=== PATIENT | male | born 1960 | race Caucasian/White ===

== ENCOUNTER 2016-12-13 05:13 | Observation (INO) | payer OTHER ==
[~2016-12-13] VITALS: Ht 188 cm; Wt 124.8 kg
[2016-12-13] VITALS (9 sets, daily range): BP systolic 102–139; BP diastolic 57–90
--- NOTE | 2016-12-13 07:02 | DIAGNOSTIC IMAGING REPORT ---
PROCEDURE: CT ABD/PELVIS WITH CONTRAST CLINICAL INDICATION: ABDOMINAL PAIN TECHNIQUE: 135 ml of Isovue 300 were injected intravenously and axial images were obtained of the entire abdomen and pelvis with sagittal and coronal reformations. COMPARISON: None. FINDINGS: ABDOMEN: Lung bases are clear. Heart size is normal. Distended gallbladder (15 cm). No evidence of cholelithiasis or inflammatory changes. Normal CBD measures 6 mm. Liver, pancreas, spleen, adrenal glands and kidneys are unremarkable. Stomach is unremarkable. Mild atherosclerosis. Nonspecific bowel gas pattern. PELVIS: Normal appendix. Mildly enlarged prostate, 4.7 cm. There is no pelvic mass, inflammatory changes or free fluid. No suspicious osseous lesions. IMPRESSION: 1. Markedly distended gallbladder. Recommend ultrasound 2. Mildly enlarged prostate 3. Results discussed Dr. Michael All CT scans at this facility use dose modulation, iterative reconstruction, and/or weight-based dosing when appropriate to reduce radiation dose to as low as reasonably achievable.
--- NOTE | 2016-12-13 08:50 | ED CLINICAL REPORT ---
Clinical Report - Phys[facility] Levels [facility] [address] [place] [address] 12/13/2016 5:15 Patient: ERASMO BENNETT Time Seen: 05:37 Dec 13 2016. Arrived- By private vehicle. Historian- patient. CPT: ER phys charges level 5 (#[id number]). HISTORY OF PRESENT ILLNESS Chief Complaint: ABDOMINAL PAIN. At its maximum, severity described as moderate. When seen in the E.D., severity described as moderate. Modifying factors- worsened by movement. Not relieved by anything. It is described as "pain" and it is described as located in the right upper quadrant and radiating to the upper back. This started today ( Patient states he woke from sleep with severe pain in his abdomen. He reports the pain radiates to his back.). and is still present. The patient has had nausea and loss of appetite. No vomiting or diarrhea. No recent travel. Similar symptoms previously: None. Recent medical care: Not recently seen/assessed. REVIEW OF SYSTEMS No constipation, black stools, hematemesis, difficulty with urination or pain with urination. No urinary frequency, fever, sore throat or throat or chest pain. No difficulty breathing, cough, joint pain, skin rash or chills. No back pain, weakness, diabetic symptoms or easy bruising. All systems otherwise negative, except as recorded above. PAST HISTORY Pituitary mass. Hypertension. --05:21 Delmi Lopez. ADDITIONAL SURGERIES: Abdominal surgery- after accident . Medications: Hydrochlorothiazide Oral. Omeprazole Oral. Bromocriptine Mesylate Oral. Allergies: Wellbutrin. SOCIAL HISTORY Never smoker. Occasional alcohol use. No drug use. ADDITIONAL NOTES The nursing notes have been reviewed. PHYSICAL EXAM Vital Signs: 12/13/2016 05:18 BP: 178/98. HR: 70. RR: 20. O2 saturation: 99%. Temp: 97.8 F. Pain level now: 10/10. Appearance: Alert. Anxious. Patient in moderate distress. Eyes: Eyes normal inspection. ENT: Pharynx normal. Neck: Normal inspection. CVS: Normal heart rate and rhythm. Heart sounds normal. Pulses normal. Respiratory: No respiratory distress. Breath sounds normal. Chest nontender. Abdomen: Soft. Moderate tenderness in the epigastric area. Abnormal bowel sounds: diminished. No mass. Back: Normal inspection. No CVA tenderness. Skin: Skin warm. Normal skin color. No rash. Extremities: Extremities exhibit normal ROM. No calf tenderness. No lower extremity edema. Neuro: Oriented X 3. No motor deficit. No sensory deficit. Reflexes normal. LABS, X-RAYS, AND EKG Abdominal CT: large GB at 15 cm long. No apparent inflammatory signs or obvious stones seen. Recommends US study. Abdominal CT performed with IV contrast. The study was independently viewed by me, interpreted by the radiologist and discussed with the radiologist. Abdominal Sonogram: Multiple gallstones are present. Gallbladder wall thickening is present. (Gallbladder). No pericholecystic fluid, dilated common duct or common duct stones. The study was independently viewed by me and interpreted contemporaneously by me. Laboratory Tests: UA-Culture if indicated: (BERRTAM: 12/13/2016 05:34) ( [facility] 12/13/2016 05:55) Final results Test Result Flag Units (Reference) URINE COLOR YELLOW URINE APPEARANCE CLEAR URINE GLUCOSE NEGATIVE (NEGATIVE) URINE BILIRUBIN NEGATIVE (NEGATIVE) URINE KETONE NEGATIVE (NEGATIVE) URINE SPECIFIC GRAVITY 1.025 (1.010-1.030) URINE PH 6.0 (5.0-8.0) URINE PROTEIN NEGATIVE (NEGATIVE) URINE UROBILINOGEN 0.2 EU/dL (0.2-1.0) URINE NITRITE NEGATIVE (NEGATIVE) URINE BLOOD NEGATIVE (NEGATIVE) URINE LEUK ESTERASE NEGATIVE (NEGATIVE) URINE RBC RARE rbc/hpf (0-1) URINE WBC 0-1 wbc/hpf (0-1) URINE EPITHELIAL CELLS 0-1 EPI/hpf (0-5) URINE BACTERIA TRACE (<1+) (NONE SEEN) URINE COMMENT CULT NOT INDICATED URINE CULTURES ARE SET-UP BASED ON THE FOLLOWING CRITERIA:POSITIVE NITRITEPOSITIVE LEUKOCYTE ESTERASEGREATER THAN 10 WHITE BLOOD CELLSMODERATE (2+) OR GREATER BACTERIA CBC w Diff: (BERTRAM: 12/13/2016 05:20) ( [facility] 12/13/2016 05:39) Final results Test Result Flag Units (Reference) WHITE BLOOD COUNT 7.2 K/uL (4.5-11.5) RED BLOOD COUNT 5.39 M/uL (4.50-5.90) HEMOGLOBIN 16.0 gm/dL (13.5-17.5) HEMATOCRIT 46.2 % (41.0-53.0) MEAN CELL VOLUME 86 fL (80-100) MEAN CORPUSCULAR HGB 30 pg (26-34) MEAN CORPUSCULAR HGB CONC 35 g/dL (31-37) RED CELL DISTRIBUTION WIDTH 13.4 % (11.6-14.8) PLATELET COUNT 226 K/uL (150-400) NEUTROPHIL % 63.9 % (50-75) LYMPH % 26.4 % (25-40) MONO % 7.7 % (3-14) EOSINOPHIL % 1.8 % (0-4) BASOPHIL % 0.2 % (0-2) CMP: (BERTRAM: 12/13/2016 05:20) ( MsgRcvd 12/13/2016 05:43) Final results Test Result Flag Units (Reference) GLUCOSE 121 H mg/dL (70-110) BUN 21 H mg/dL (7-18) CREATININE 1.3 mg/dL (0.6-1.3) Estimated GFR >60 mL/min Estimated GFR- >60 mL/min Note: Persistent reduction over 3 months in eGFR<60 mL/min/1.73 m2 defines CKD. Patients with eGFR values>=60 mL/min/1.73 m2 may also have CKD if evidence ofpersistent proteinuria. Additional information may be foundat www.kidney.org. SODIUM 144 mmol/L (136-145) POTASSIUM 4.0 mmol/L (3.5-5.1) CHLORIDE 105 mmol/L (98-107) CARBON DIOXIDE 28 mmol/L (21-32) CALCIUM 8.9 mg/dL (8.5-10.1) TOTAL PROTEIN 7.7 g/dL (6.4-8.2) ALBUMIN 3.8 g/dL (3.3-5.0) BILIRUBIN, TOTAL 0.5 mg/dL (0.0-1.0) ALKALINE PHOSPHATASE 72 U/L (46-116) AST (SGOT) 23 U/L (15-37) ALT (SGPT) 59 U/L (12-78) LIPASE 279 U/L (73-393) AMYLASE 56 U/L (25-115) . PROGRESS AND PROCEDURES Course of Care: IV NS Demerol 25 mg IV Zofran 4 mg IV White GI cocktail: NO change Dilaudid 1 mg IV times 2 Zofran 4 mg IV Patient is stable. Symptoms better. Discussed case with on-call health care provider, ([facility]). Reviewed test results. Agreed upon treatment plan and decision to admit. Health care provider will see patient. Patient/family counseled. Old medical records ordered. Disposition orders written. Disposition: Admitted to Acute Care. CLINICAL IMPRESSION Acute cholecystitis with cholelithiasis. No obstruction or choledocholithiasis. (Electronically signed by Alex Michael MD 12/13/2016 23:11)
--- NOTE | 2016-12-13 08:50 | ED NURSING NOTES ---
Clinical Report - [facility] [address] [place] [address] 12/13/2016 5:15 Patient: ERASMO BENNETT TRIAGE Triage time 05:Dec 13 2016. Acuity: LEVEL 3. Chief Complaint: ABDOMINAL PAIN. SEPSIS SCREEN: Sepsis Screen: negative. Negative (no infection suspected/documented). NINA COMA SCORE: Nina Coma Scale: 15- eyes open spontaneously (4); best verbal response- oriented x 4 (5); best motor response- obeys commands (6). --05:22 Delmi Lopez 05:18 12/13/16. BP: 178/98. HR: 70. RR: 20. O2 saturation: 99%. Temp: 97.8 F (oral). Pain level now: 05/19. --05:22 Delmi Lopez. Weight: 124.7 kg stated. Height/Length: 74 inches Per Patient. BMI: 35.3. --05:19 Delmi Lopez. Medications Bromocriptine Mesylate Oral. --05:20 Delmi Lopez Omeprazole Oral. --05:20 Delmi Lopez Hydrochlorothiazide Oral. --05:20 Delmi Lopez. Allergies Wellbutrin. --05:20 Delmi Lopez. Medication/allergy information source: the patient. --05:22 Delmi Lopez. History Arrived by private vehicle. Historian: patient. Accompanied by family. Primary physician ([facility]). This started just prior to arrival. ( Patient states he woke from sleep with severe pain in his abdomen. He reports the pain radiates to his back.). PAST MEDICAL HX: Immunizations: up-to-date. SOCIAL HX: Never smoker. Occasional alcohol use. No recent travel. No infectious disease exposure. No known contact with a sick individual. ABUSE ASSESSMENT: No report of abuse. FALL RISK ASSESSMENT: Fall risk assessment completed. No fall risk identified. NUTRITIONAL RISK ASSESSMENT: The nutritional risk assessment revealed no deficiencies. FUNCTIONAL ASSESSMENT: Functional assessment: no impairments noted. LEARNING NEEDS ASSESSMENT: The learning needs assessment revealed no barriers. SKIN INTEGRITY ASSESSMENT: Skin integrity risk assessment completed. No skin integrity risk identified. --: Delmi Lopez. PROBLEMS: Pituitary mass. Hypertension. --05: Delmi Lopez. ADDITIONAL SURGERIES: Abdominal surgery- after accident . --05: Delmi Lopez. Interventions ID band on patient. To treatment room. --: Delmi Lopez. PHYSICAL ASSESSMENT 05:12/13/16. Ambulatory to room. Patient gowned. GENERAL / NEURO / PSYCH: Alert. Oriented X 4. Appears in pain. HEENT: Mucous membranes are pink. RESPIRATORY: Respirations not labored. CVS: Normal sinus rhythm noted. GI / : Abdomen soft. Abdominal tenderness in the epigastric area. SKIN: Skin is warm and dry. --: Delmi Lopez. NURSING PROGRESS NOTES 05:12/13/16. Pulse oximeter and NIBP monitor placed on patient; monitor alarms on. Patient gowned. Reassurance given to the patient. Two patient identifiers checked. Call light placed in reach. Side rails up x 1. Bed placed in lowest position. Brakes of bed on. Patient ready for evaluation- chart flagged and ED physician notified. --: Delmi Lopez 05:12/13/2016 Site #1 started via IV in the left antecubital space with an 20g angiocath, with aseptic technique and good blood return; one attempt. Blood drawn: rainbow set. Labeled in the presence of the patient and sent to the lab. Saline lock flushed with 10 mL saline. --05:29 Delmi Lopez Patient ID band checked for patient name and birthdate: patient confirmed. Blood samples drawn from the left antecubital space peripheral IV site with Vacutainer by nurse ; labeled in presence of the patient and sent to lab: rainbow set. Line flushed with 10 mL normal saline post blood draw. --05:30 Delmi Lopez Patient ID band checked for patient name and birthdate: patient confirmed. Instructions provided to collect clean catch urine and patient verbalized understanding. Clean catch urine collected with return of yellow-colored clear urine; sample sent to lab for urinalysis. Specimen labeled in the presence of the patient. --05:33 Delmi Lopez 05:33 12/13/16. BP: 153/94 taken on the right arm. --05:33 Delmi Lopez 05:33 12/13/16. BP: 152/94 taken on the left arm. --05:34 Delmi Lopez 05:49 12/13/2016 Demerol (Meperidine HCl) IVP 25 mg given over 1 minute(s) via site #1. Allergies verified and confirmed 5 rights. IV patency established. IV site checked: no pain, redness, or swelling. IV flushed thoroughly pre- and post-medication administration. IVP given by RN. --05:49 Delmi Lopez 05:49 12/13/2016 Zofran (Ondansetron HCl) IVP 4 mg given over 1 minute(s) via site #1. Allergies verified and confirmed 5 rights. IV patency established. IV site checked: no pain, redness, or swelling. IV flushed thoroughly pre- and post-medication administration. IVP given by RN. --05:49 Delmi Lopez 05:50 12/13/2016 GI COCKTAIL WHITE (Simethicone) PO Oral Suspension 50 mL given. Allergies verified and confirmed 5 rights. --05:50 Delmi Lopez 06:05 12/13/2016 Dilaudid (HYDROmorphone HCl PF) IVP 1 mg given over 1 minute(s) via site #1. Allergies verified, confirmed 5 rights and sedative warning given to the patient. IV patency established. IV site checked: no pain, redness, or swelling. IV flushed thoroughly pre- and post-medication administration. IVP given by RN. --06:05 Delmi Lopez 06:05 12/13/16. BP: 148/90. HR: 70. RR: 20. O2 saturation: 97% on room air. Pain level now: 05/19. --06:06 Delmi Lopez 06:15 12/13/16. Pain level now: 7/10. --06:16 Delmi Lopez 06:40 12/13/16. BP: 128/75. HR: 78. RR: 20. O2 saturation: 96% on room air. Pain level now: 6/10. --06:43 Delmi Lopez The patient is resting quietly. --06:43 Delmi Lopze Care transferred and report given (India RN). --07:09 Delmi Lopez 07:53 12/13/2016 Dilaudid (HYDROmorphone HCl PF) IVP 1 mg given over 2 minute(s) via site #1. Allergies verified, confirmed 5 rights and sedative warning given to the patient. IV patency established. IV site checked: no pain, redness, or swelling. IV flushed thoroughly pre- and post-medication administration. IVP given by RN. --07:58 India Chang R.N. 07:53 12/13/2016 Zofran (Ondansetron HCl) IVP 4 mg given over 1 minute(s) via site #1. Allergies verified and confirmed 5 rights. IV patency established. IV site checked: no pain, redness, or swelling. IV flushed thoroughly pre- and post-medication administration. IVP given by RN. --07:58 India Chang R.N. 07:59 12/13/16. military technology specialist at the patient's bedside. --07:59 India Chang R.N. 07:59 12/13/16. BP: 127/72. HR: 66. RR: 16. O2 saturation: 98% on nasal cannula at 2 liters/minute. --07:59 India Chang R.N. <<STRICKEN ENTRY-- Reassessment after medication administered. He has had no adverse reaction. Overall patient status- he states feels better. ( US at the bedside for exam.). --08:44 Vannessa Casillas R.N. --END STRIKE>> Charted On Wrong Patient --08:44 Vannessa Casillas R.N. 09:13 12/13/16. BP: 127/72. HR: 76. RR: 12. O2 saturation: 95% on nasal cannula at 2 liters/minute. --09:14 India Chang R.N. 10:05 12/13/16. BP: 105/51. HR: 86. RR: 16. O2 saturation: 95% on nasal cannula at 2 liters/minute. --10:05 India Chang R.N. DISPOSITION / DISCHARGE 10:25 12/13/2016 Site #[address] upon admission; patent, no pain and no signs of infection or infiltration. Flushed with 10 mL saline; flushes easily. --10:25 India Chang R.N. Admitted to Acute Care. Transported via stretcher by tech. Report was given to a nurse via a phone call. Report included patient's care, treatment, medications, reviewed medication reconcilliation, and condition (including any recent changes or anticipated changes). All questions were answered. Report was acknowledged and care was transferred. (RAKESH Feliz). Bed obtained (301). Patient's personal items include: glasses and cell phone, pt states his took all the rest of his belongings home; items were transported with the patient. He did not have dentures or a hearing aid. --10:25 India Chang R.N. 13:48 12/13/16. BP: 105/51. HR: 86. RR: 16. O2 saturation: 95% on room air. Temp: 98 F (oral). --13:49 India Chang R.N. Locked/Released at 12/13/2016 13:50 by India Chang R.N.
--- NOTE | 2016-12-13 08:50 | ED ORDER SUMMARY ---
..... Patient: ERASMO BENNETT OrderSheet [facility] VisitID: [id number] [address] [place] [address] 56y, M Registration Date/Time: 12/13/2016 ORDER SHEET Weight: 124.7 kg (stated) Allergies: Wellbutrin GENERAL ORDERS: CBC w Diff Urgent (05:23 12/13/2016 HSoule per protocol) (Ack 5:27 AMcQuoid ER Tech1) (5:27 AMcQuoid ER Tech1) CMP Urgent (05:23 12/13/2016 HSoule per protocol) (Ack 5:27 AMcQuoid ER Tech1) (5:27 AMcQuoid ER Tech1) Amylase Urgent (05:12/13/2016 HSoule per protocol) (Ack 5:27 AMcQuoid ER Tech1) (5:27 AMcQuoid ER Tech1) Lipase Urgent (05:12/13/2016 HSoule per protocol) (Ack 5:27 AMcQuoid ER Tech1) (5:27 AMcQuoid ER Tech1) UA-Culture if indicated Urgent (05:23 12/13/2016 HSoule per protocol) (Ack 5:27 AMcQuoid ER Tech1) (5:43 AMcQuoid ER Tech1) CT Abd/Pel w Cont (No) (WNL) Urgent (06:02 12/13/2016 CBrandy R.N. verbal order read back to Rahul SPAULDING) (Ack 6:04 AMcQuoid ER Tech1) (6:40 Marita) Verbal order read back and verified US Abdomen Limited (No) (GALLBLADDER EXAM) Urgent (07:03 12/13/2016 AMcQuoid ER Tech1 verbal order read back to Rahul SPAULDING) (Ack 7:05 AMcQuoid ER Tech1) (9:13 MWinterer R.N.) MEDICATION ORDERS: GI Cocktail WHITE PO 50 mL (NOW) (05:41 12/13/2016 Rahul SPAULDING) (Ack 5:41 HSoule) (5:50 HSoule) IV FLUIDS: IV Saline Lock (05:29 12/13/2016 HSoule per protocol) (5:29 HSoule) Demerol IV 25 mg (NOW) (05:41 12/13/2016 Rahul SPAULDING) (Ack 5:41 HSoule) (5:49 HSoule) Zofran IV 4 mg (NOW) (05:41 12/13/2016 Rahul SPAULDING) (Ack 5:41 HSoule) (5:49 HSoule) Dilaudid IV 1 mg (NOW) (06:02 12/13/2016 Jennifer GoinsNShayne verbal order read back to Rahul SPAULDING) (6:05 HSoule) Verbal order read back and verified Dilaudid IV 1 mg (NOW) (07:44 12/13/2016 Rahul SPAULDING) (Ack 7:47 MWinterer R.N.) (7:58 MWinterer R.N.) Zofran IV 4 mg (NOW) (07:44 12/13/2016 Rahul SPAULDING) (Ack 7:47 MWinterer R.N.) (7:58 MWinterer R.N.) ORDER SHEET NOTES: [Electronically signed by India Chang R.N. (13:50 12/13/2016)] [Electronically signed by Alex Michael MD (23:11 12/13/2016)] [Electronically locked/signed by India Chang R.N. (13:50 12/13/2016)]
--- NOTE | 2016-12-13 08:50 | ED ORDER SUMMARY ---
..... Patient: ERASMO BENNETT OrderSheet [facility] VisitID: [id number] [address] [place] [address] 56y, M Registration Date/Time: 12/13/2016 ORDER SHEET Weight: 124.7 kg (stated) Allergies: Wellbutrin GENERAL ORDERS: CBC w Diff Urgent (05:23 12/13/2016 HSoule per protocol) (Ack 5:27 AMcQuoid ER Tech1) (5:27 AMcQuoid ER Tech1) CMP Urgent (05:23 12/13/2016 HSoule per protocol) (Ack 5:27 AMcQuoid ER Tech1) (5:27 AMcQuoid ER Tech1) Amylase Urgent (05:12/13/2016 HSoule per protocol) (Ack 5:27 AMcQuoid ER Tech1) (5:27 AMcQuoid ER Tech1) Lipase Urgent (05:12/13/2016 HSoule per protocol) (Ack 5:27 AMcQuoid ER Tech1) (5:27 AMcQuoid ER Tech1) UA-Culture if indicated Urgent (05:23 12/13/2016 HSoule per protocol) (Ack 5:27 AMcQuoid ER Tech1) (5:43 AMcQuoid ER Tech1) CT Abd/Pel w Cont (No) (WNL) Urgent (06:02 12/13/2016 CBrandy R.N. verbal order read back to Rahul SPAULDING) (Ack 6:04 AMcQuoid ER Tech1) (6:40 Marita) Verbal order read back and verified US Abdomen Limited (No) (GALLBLADDER EXAM) Urgent (07:03 12/13/2016 AMcQuoid ER Tech1 verbal order read back to Rahul SPAULDING) (Ack 7:05 AMcQuoid ER Tech1) (9:13 MWinterer R.N.) MEDICATION ORDERS: GI Cocktail WHITE PO 50 mL (NOW) (05:41 12/13/2016 Rahul SPAULDING) (Ack 5:41 HSoule) (5:50 HSoule) IV FLUIDS: IV Saline Lock (05:29 12/13/2016 HSoule per protocol) (5:29 HSoule) Demerol IV 25 mg (NOW) (05:41 12/13/2016 Rahul SPAULDING) (Ack 5:41 HSoule) (5:49 HSoule) Zofran IV 4 mg (NOW) (05:41 12/13/2016 Rahul SPAULDING) (Ack 5:41 HSoule) (5:49 HSoule) Dilaudid IV 1 mg (NOW) (06:02 12/13/2016 Jennifer GoinsNShayne verbal order read back to Rahul SPAULDING) (6:05 HSoule) Verbal order read back and verified Dilaudid IV 1 mg (NOW) (07:44 12/13/2016 Rahul SPAULDING) (Ack 7:47 MWinterer R.N.) (7:58 MWinterer R.N.) Zofran IV 4 mg (NOW) (07:44 12/13/2016 Rahul SPAULDING) (Ack 7:47 MWinterer R.N.) (7:58 MWinterer R.N.) ORDER SHEET NOTES: [Electronically signed by India Chang R.N. (13:50 12/13/2016)] [Electronically signed by Alex Michael MD (23:11 12/13/2016)] [Electronically locked/signed by India Chang R.N. (13:50 12/13/2016)]
--- NOTE | 2016-12-13 09:59 | DIAGNOSTIC IMAGING REPORT ---
PROCEDURE: US ABDOMEN ULTRASOUND-LIMITED INDICATION: PAIN TECHNIQUE: Ordaz scale and color Doppler sonographic images of the abdomen were obtained. COMPARISON: None. FINDINGS: Enlarged gallbladder (15 cm) with two gallstones (1.0 and 1.3 cm ) mobile gallstones. There is mild gallbladder wall thickening (3.2 mm). CBD measures 6 mm. Liver is normal. Visualized pancreas is unremarkable. IVC is patent. Normal hepatopetal flow. Normal right kidney measures 12.1 cm. IMPRESSION: 1. Gallbladder hydrops with cholelithiasis and mild gallbladder wall thickening. Findings suggestive of acute cholecystitis 2. Results discussed Dr. Michael
[2016-12-13] MEDS ORDERED: BROMOCRIPTINE ME5 MG ×3 (11:12→12:59)
[2016-12-13] MEDS ORDERED: OMEPRAZOLE20 M1 (11:12)
[2016-12-13] MEDS ORDERED: HYDROCHLOROTHIA25 MG PO (11:13)
--- NOTE | 2016-12-13 13:35 | Consultation Report ---
History Chief Complaint Right upper quadrant abdominal pain History of Present Illness 56-year-old male admitted via the emergency room. The patient presented with epigastric right upper quadrant abdominal pain. Patient states that after he ate some homemade tacos the evening prior to felt a little queasy. He went to bed and at 4 AM awoke with epigastric abdominal discomfort that radiated into his back. Denied any nausea or vomiting. Denied any diarrhea. Denied any fever or chills. Denied any prior history of abdominal pain like this. Denied any history of peptic ulcer disease. PAST MEDICAL/SURGICAL HISTORY: History of chest wall injury requiring suturing. History of biceps tendon repair. Repair of smashed fourth digit left hand. History of hypertension. History of benign pituitary tumor. MEDICATION: Bromocriptine 50 mg at bedtime Hydrochlorothiazide 25 mg daily. Omeprazole 20 mg daily Patient History 1. Acute cholecystitis Social History The patient is . He has 2 sons and 1 daughter they're alive and well. The patient lives on [facility]. Patient does not smoke. Patient drinks alcohol rarely socially. Patient does not drink coffee. Patient has no service. Patient is employed by the [employer] and elevated with a [employer] FAMILY HISTORY: Mother age 70 history of breast cancer. Father age 72 history of hypertension and gout. Patient has no brothers. Patient has 2 sisters alive and well. Medications and Allergies Medications See my above dictation Current Medications Sig/Pat Start time Last Medication Dose Route Stop Time Status Admin Acetaminophen 1,000 MG PREOP 12/14 0800 UNV IV Cefotetan Disodium/ 50 ML Q12HR / 1200 AC 05/06 Dextrose IV 1200 Famotidine/Sodium 50 ML Q12HR / 1200 AC 05/06 Chloride IV 1126 Metoclopramide HCl 10 MG Q6HR / 1200 AC 05/06 IV 1126 Cefotetan Disodium/ 50 ML .CASING RUNNER TO OR 12/13 1030 AC Dextrose IV Lactated Ringer's 1,000 ML ASDIRECTED 12/13 1030 AC 05/06 IV 1127 Meperidine HCl 12.5 MG Q1H PRN / 1030 AC IV Meperidine HCl 25 MG Q1H PRN / 1030 AC 05/06 IV 1326 Ondansetron HCl 4 MG Q6H PRN 12/13 1030 AC IV Allergies Coded Allergies: Bupropion (From Wellbutrin) (Severe, 12/13/16) Review of Systems Other Patient denies any history of hepatitis, jaundice, rheumatic fever, heart murmur requiring antibiotics, or bleeding tendencies. 12 point review of systems is negative. Physical Exam Vital Signs / I&Os Vital Signs Date Time Temp Pulse Resp B/P Pulse O2 O2 Flow FiO2 Ox Delivery Rate 12/13 1056 97.5 75 21 102/60 95 General Appearance Alert, Oriented X3, Cooperative, No acute distress HEENT Normal exam, Atraumatic, PERRLA, EOMI, Moist mucous membranes Lungs Clear to auscultation Neck Supple, No JVD, No masses, No thyromegaly, No lymphadenopathy Cardiovascular Regular rate and rhythm Abdomen Normal bowel sounds, No masses, slight tenderness epigastric right upper quadrant region. Extremities No edema Skin no peripheral cyanosis Neurological No lateralizing signs Psych/Mental Status Mood normal LAB Results White count 7.2. Liver function studies including total bilirubin alcohol phosphatase normal. Lipase normal. Laboratory Tests 12/13 12/13 0520 0534 Chemistry Plasma Sodium (136 - 145 mmol/L) 144 Plasma Potassium (3.5 - 5.1 mmol/L) 4.0 Plasma Chloride (98 - 107 mmol/L) 105 CO2 (Enzymatic) (21 - 32 mmol/L) 28 BUN (7 - 18 mg/dL) 21 Creatinine (0.6 - 1.3 mg/dL) 1.3 Est GFR ( Amer) (mL/min) >60 Est GFR (Non-Af Amer) (mL/min) >60 Glucose (70 - 110 mg/dL) 121 Plasma Calcium (8.5 - 10.1 mg/dL) 8.9 Total Bilirubin (0.0 - 1.0 mg/dL) 0.5 AST (15 - 37 U/L) 23 ALT (12 - 78 U/L) 59 Alkaline Phosphatase (46 - 116 U/L) 72 Total Protein (6.4 - 8.2 g/dL) 7.7 Albumin (3.3 - 5.0 g/dL) 3.8 Amylase (25 - 115 U/L) 56 Lipase (73 - 393 U/L) 279 Hematology WBC (4.5 - 11.5 K/uL) 7.2 RBC (4.50 - 5.90 M/uL) 5.39 Hgb (13.5 - 17.5 gm/dL) 16.0 Hct (41.0 - 53.0 %) 46.2 MCV (80 - 100 fL) 86 MCH (26 - 34 pg) 30 RDW (11.6 - 14.8 %) 13.4 Neut % (Auto) (50 - 75 %) 63.9 Lymph % (Auto) (25 - 40 %) 26.4 [place] % (Auto) (3 - 14 %) 7.7 Eos % (Auto) (0 - 4 %) 1.8 Baso % (Auto) (0 - 2 %) 0.2 Plt Count, EDTA (150 - 400 K/uL) 226 PUBS MCHC (31 - 37 g/dL) 35 Urines Urine Color YELLOW Urine Appearance CLEAR Urine pH (5.0 - 8.0) 6.0 Ur Specific [place] (1.010 - 1.030) 1.025 Urine Protein (NEGATIVE) NEGATIVE Urine Ketones (NEGATIVE) NEGATIVE Urine Blood (NEGATIVE) NEGATIVE Urine Nitrite (NEGATIVE) NEGATIVE Urine Bilirubin (NEGATIVE) NEGATIVE Urine Urobilinogen (0.2 - 1.0 EU/dL) 0.2 Ur Leukocyte Esterase (NEGATIVE) NEGATIVE Urine RBC (0 - 1 rbc/hpf) RARE Urine WBC (0 - 1 wbc/hpf) 0-1 Ur Epithelial Cells (0 - 5 EPI/hpf) 0-1 Urine Bacteria (NONE SEEN) TRACE (<1+) Urine Glucose (NEGATIVE) NEGATIVE Urine Comment CULT NOT INDICATED Microbiology Date/Time Procedure - Status Source Growth 12/13 1050 MRSA Screen - RECD NASAL Imaging CT of abdomen showed a distended 18 cm gallbladder. Ultrasound of gallbladder shows 2 stones appear to be mobile mass measuring a little over 1 cm in size. The patient's gallbladder is distended. With a 3 mm wall thickening. On bile duct measures 6 mm. There is no pericholecystic fluid. Assessment and Plan Problem List 1. Acute cholecystitis Plan Suspected hydrops of the gallbladder. Plan discussed the pathophysiology of gallbladder disease with the patient and his . Recommend laproscopic cholecystectomy. Procedure then explained to patient including the potential risks but not exclusive of --trocar site hernia/trocar site infection. Also discussed open conversion, transfusion, hemorrhage, pancreatitis, damage to local structures, i.e. small bowel:, Retained stone, bile leak, damage to major ductal system requiring rerouting of small intestine to the liver, pulmonary embolism, and pneumonia. The patient understands and agrees proceed. We will schedule him appropriately.
--- NOTE | 2016-12-13 15:28 | Progress Note ---
Subjective General Admission History and Physical Examination Patient Name: Sony Degroot Patient ID: [id number] Admission Date: December 14, 2016 Primary Care Provider: [facility] Attending Physician: mirza Guerrero M.D. Admitting Physician: Cesar Roque M.D. Code Status: FULL CODE Room: 301 Status: acute care observation SUBJECTIVE Historian: Patient, Reliability: Good Chief Complaint: Acute abdominal pain History of Present Illness: The patient is a 56-year-old white male with a significant past medical history of low androgen, hyper pituitary, hypertension, GERD who presented to [facility] ER with acute abdominal pain. Patient began noting pain in the right upper quadrant to epigastric at 4 AM this morning. Patient was taken emergency department. There he was evaluated and determined that his gallbladder was diseased. Patient showed stones in the gallbladder and a 3 mm wall thickening. Patient was consulted by general surgery. Admission through hospitalist soren Roque M.D. for further evaluation and treatment. Last night, patient states that he had home made tacos the evening before. He was awoken by pain in the epigastric region around 4 AM this morning. Patient reported that the pain radiated to the back. He reported of moderate to severe pain. Patient denied nausea or vomiting. He denied diarrhea. No chills or fever. Patient has not had similar episodes of abdominal pain in the past. Patient does have a history of peptic ulcer disease. I before and then woke up this morning around 8 4 AM. Secondary to the above, was taken by private car to the [facility] emergency department for further evaluation and treatment. [facility] ER evaluation showed the patient to have disease gallbladder. Patient was seen by general surgery who elected to perform surgery today. PAST MEDICAL HISTORY Illnesses: Low androgen. Hyper pituitary/pituitary tumor GERD Hypertension Allergies: None Medications: Omeprazole 20 mg by mouth daily. Bromocriptine 50 mg by mouth at bedtime. Hydrochlorothiazide 25 mg by mouth daily Surgery: History of biceps tendon repair, history of a injured digit on the left hand Injuries: 1. No significant Hospitalizations: 1. For above medical problems and surgery FAMILY HISTORY Mother is living at age 70 with breast cancer. Father living age 72 with hypertension and gout. SOCIAL HISTORY 1. Marital Status: 25 years 2. Mormon: Unknown 3. Education: High school 4. Employment History: Works for the [employer], [employer] 5. Occupational health exposures: No known HABITS 1. Tobacco: No tobacco use 2. Drugs: None 3. Alcohol: Social alcohol 4. Caffeine: None HEALTH SUPERVISION Item/Test 1. Unobtainable IMMUNIZATIONS: 1. Pneumococcal: Unknown 2. Influenza: Unknown 3. Tetanus: Unknown ADVANCED DIRECTIVES: 1. Living well: Unknown 2. POLST: None 3. Code Status: FULL CODE 4. Durable Power Bridge Instructor Health care: 5. Donor card: Unknown REVIEW OF SYSTEMS Remarkable for those things stated in the history of present illness and past medical history. Seventeen point review of system completed with the following notable findings: Unobtainable review of systems secondary to mental [id number] male admitted via the emergency room. The patient presented with epigastric right upper quadrant abdominal pain. Constitutional Denies: Chills, Sweats. Eyes Denies: Vision Change. Respiratory Denies: SOB w/exertion, Wheezing. Cardiovascular Denies: Palpitations, Orthopnea. Gastrointestinal Abdominal Pain. Denies: Nausea, Vomiting, Diarrhea. Genitourinary Denies: Hematuria. Musculoskeletal Denies: Back Pain. Skin Denies: Jaundice. Neurological Denies: Confusion, Seizures. Physical Exam Vital Signs / I&Os Vital Signs Date Time Temp Pulse Resp B/P Pulse O2 O2 Flow FiO2 Ox Delivery Rate 12/13 1432 98.4 69 21 110/57 96 Room Air 12/13 1056 97.5 75 21 102/60 95 General Appearance Oriented X3, Cooperative HEENT EOMI Lungs Clear to auscultation, Normal air movement Cardiovascular Normal S1 and S2, No murmurs, gallops, rubs Abdomen tenderness in the upper quadrant, right upper quadrant No rebound, slight distention Extremities Normal pulses, No tenderness Neurological Normal gait, Normal speech Psych/Mental Status Mood normal LAB Results Laboratory Tests 12/13 12/13 0520 0534 Chemistry Plasma Sodium (136 - 145 mmol/L) 144 Plasma Potassium (3.5 - 5.1 mmol/L) 4.0 Plasma Chloride (98 - 107 mmol/L) 105 CO2 (Enzymatic) (21 - 32 mmol/L) 28 BUN (7 - 18 mg/dL) 21 Creatinine (0.6 - 1.3 mg/dL) 1.3 Est GFR ( Amer) (mL/min) >60 Est GFR (Non-Af Amer) (mL/min) >60 Glucose (70 - 110 mg/dL) 121 Plasma Calcium (8.5 - 10.1 mg/dL) 8.9 Total Bilirubin (0.0 - 1.0 mg/dL) 0.5 AST (15 - 37 U/L) 23 ALT (12 - 78 U/L) 59 Alkaline Phosphatase (46 - 116 U/L) 72 Total Protein (6.4 - 8.2 g/dL) 7.7 Albumin (3.3 - 5.0 g/dL) 3.8 Amylase (25 - 115 U/L) 56 Lipase (73 - 393 U/L) 279 Hematology WBC (4.5 - 11.5 K/uL) 7.2 RBC (4.50 - 5.90 M/uL) 5.39 Hgb (13.5 - 17.5 gm/dL) 16.0 Hct (41.0 - 53.0 %) 46.2 MCV (80 - 100 fL) 86 MCH (26 - 34 pg) 30 RDW (11.6 - 14.8 %) 13.4 Neut % (Auto) (50 - 75 %) 63.9 Lymph % (Auto) (25 - 40 %) 26.4 [place] % (Auto) (3 - 14 %) 7.7 Eos % (Auto) (0 - 4 %) 1.8 Baso % (Auto) (0 - 2 %) 0.2 Plt Count, EDTA (150 - 400 K/uL) 226 PUBS MCHC (31 - 37 g/dL) 35 Urines Urine Color YELLOW Urine Appearance CLEAR Urine pH (5.0 - 8.0) 6.0 Ur Specific [place] (1.010 - 1.030) 1.025 Urine Protein (NEGATIVE) NEGATIVE Urine Ketones (NEGATIVE) NEGATIVE Urine Blood (NEGATIVE) NEGATIVE Urine Nitrite (NEGATIVE) NEGATIVE Urine Bilirubin (NEGATIVE) NEGATIVE Urine Urobilinogen (0.2 - 1.0 EU/dL) 0.2 Ur Leukocyte Esterase (NEGATIVE) NEGATIVE Urine RBC (0 - 1 rbc/hpf) RARE Urine WBC (0 - 1 wbc/hpf) 0-1 Ur Epithelial Cells (0 - 5 EPI/hpf) 0-1 Urine Bacteria (NONE SEEN) TRACE (<1+) Urine Glucose (NEGATIVE) NEGATIVE Urine Comment CULT NOT INDICATED Microbiology Date/Time Procedure - Status Source Growth 12/13 1050 MRSA Screen - RECD NASAL Imaging Gall bladder ultrasound 1. Gallbladder hydrops with cholelithiasis and mild gallbladder wall thickening. Findings suggestive of acute cholecystitis CT abdomen and pelvis 1. Markedly distended gallbladder. Recommend ultrasound 2. Mildly enlarged prostate Assessment and Plan Problem List 1. Acute cholecystitis Plan Consulting general surgery. Pending cholecystectomy today. Monitor fluids. Continue with the home medication. Surgery will perform a lap cholecystectomy. We'll monitor healing. Patient will be nothing by mouth overnight. Follow-up with labs in the morning. Appropriate pain control. 2. Hypertension Plan Monitor blood pressure. Will continue with the single agent hydrochlorothiazide. 3. Hyperpituitarism Plan Home medication includes a bromocriptine 50 mg at bedtime. This will continue. Otherwise stable. 4. GERD (gastroesophageal reflux disease) Status Chronic Plan GI prophylaxis. Substitute with pantoprazole 40 mg daily. Current status: Fair, unstable Anticipated discharge date: Anticipated discharge in 1-2 days Anticipated discharge placement: Home Patient care time: Time spent in chart review, patient interview, physical exam, CPOE, and care documentation: 70 minutes Visit to patient today: 1 Complexity of care: Moderate Initial patient evaluation: Emergency department GI prophylaxis: Protonix 40 mg IV daily DVT prophylaxis: SCD E&M Codes Rounding: Obsv-Comp/High/[id number]
--- NOTE | 2016-12-13 15:28 | Progress Note ---
Subjective General Admission History and Physical Examination Patient Name: Sony Degroot Patient ID: [id number] Admission Date: December 14, 2016 Primary Care Provider: [facility] Attending Physician: mirza Guerrero M.D. Admitting Physician: Cesar Roque M.D. Code Status: FULL CODE Room: 301 Status: acute care observation SUBJECTIVE Historian: Patient, Reliability: Good Chief Complaint: Acute abdominal pain History of Present Illness: The patient is a 56-year-old white male with a significant past medical history of low androgen, hyper pituitary, hypertension, GERD who presented to [facility] ER with acute abdominal pain. Patient began noting pain in the right upper quadrant to epigastric at 4 AM this morning. Patient was taken emergency department. There he was evaluated and determined that his gallbladder was diseased. Patient showed stones in the gallbladder and a 3 mm wall thickening. Patient was consulted by general surgery. Admission through hospitalist soren Roque M.D. for further evaluation and treatment. Last night, patient states that he had home made tacos the evening before. He was awoken by pain in the epigastric region around 4 AM this morning. Patient reported that the pain radiated to the back. He reported of moderate to severe pain. Patient denied nausea or vomiting. He denied diarrhea. No chills or fever. Patient has not had similar episodes of abdominal pain in the past. Patient does have a history of peptic ulcer disease. I before and then woke up this morning around 8 4 AM. Secondary to the above, was taken by private car to the [facility] emergency department for further evaluation and treatment. [facility] ER evaluation showed the patient to have disease gallbladder. Patient was seen by general surgery who elected to perform surgery today. PAST MEDICAL HISTORY Illnesses: Low androgen. Hyper pituitary/pituitary tumor GERD Hypertension Allergies: None Medications: Omeprazole 20 mg by mouth daily. Bromocriptine 50 mg by mouth at bedtime. Hydrochlorothiazide 25 mg by mouth daily Surgery: History of biceps tendon repair, history of a injured digit on the left hand Injuries: 1. No significant Hospitalizations: 1. For above medical problems and surgery FAMILY HISTORY Mother is living at age 70 with breast cancer. Father living age 72 with hypertension and gout. SOCIAL HISTORY 1. Marital Status: 25 years 2. Scientology: Unknown 3. Education: High school 4. Employment History: Works for the [employer], [employer] 5. Occupational health exposures: No known HABITS 1. Tobacco: No tobacco use 2. Drugs: None 3. Alcohol: Social alcohol 4. Caffeine: None HEALTH SUPERVISION Item/Test 1. Unobtainable IMMUNIZATIONS: 1. Pneumococcal: Unknown 2. Influenza: Unknown 3. Tetanus: Unknown ADVANCED DIRECTIVES: 1. Living well: Unknown 2. POLST: None 3. Code Status: FULL CODE 4. Durable Power Instrument Specialist Health care: 5. Donor card: Unknown REVIEW OF SYSTEMS Remarkable for those things stated in the history of present illness and past medical history. Seventeen point review of system completed with the following notable findings: Unobtainable review of systems secondary to mental [id number] male admitted via the emergency room. The patient presented with epigastric right upper quadrant abdominal pain. Constitutional Denies: Chills, Sweats. Eyes Denies: Vision Change. Respiratory Denies: SOB w/exertion, Wheezing. Cardiovascular Denies: Palpitations, Orthopnea. Gastrointestinal Abdominal Pain. Denies: Nausea, Vomiting, Diarrhea. Genitourinary Denies: Hematuria. Musculoskeletal Denies: Back Pain. Skin Denies: Jaundice. Neurological Denies: Confusion, Seizures. Physical Exam Vital Signs / I&Os Vital Signs Date Time Temp Pulse Resp B/P Pulse O2 O2 Flow FiO2 Ox Delivery Rate 12/13 1432 98.4 69 21 110/57 96 Room Air 12/13 1056 97.5 75 21 102/60 95 General Appearance Oriented X3, Cooperative HEENT EOMI Lungs Clear to auscultation, Normal air movement Cardiovascular Normal S1 and S2, No murmurs, gallops, rubs Abdomen tenderness in the upper quadrant, right upper quadrant No rebound, slight distention Extremities Normal pulses, No tenderness Neurological Normal gait, Normal speech Psych/Mental Status Mood normal LAB Results Laboratory Tests 12/13 12/13 0520 0534 Chemistry Plasma Sodium (136 - 145 mmol/L) 144 Plasma Potassium (3.5 - 5.1 mmol/L) 4.0 Plasma Chloride (98 - 107 mmol/L) 105 CO2 (Enzymatic) (21 - 32 mmol/L) 28 BUN (7 - 18 mg/dL) 21 Creatinine (0.6 - 1.3 mg/dL) 1.3 Est GFR ( Amer) (mL/min) >60 Est GFR (Non-Af Amer) (mL/min) >60 Glucose (70 - 110 mg/dL) 121 Plasma Calcium (8.5 - 10.1 mg/dL) 8.9 Total Bilirubin (0.0 - 1.0 mg/dL) 0.5 AST (15 - 37 U/L) 23 ALT (12 - 78 U/L) 59 Alkaline Phosphatase (46 - 116 U/L) 72 Total Protein (6.4 - 8.2 g/dL) 7.7 Albumin (3.3 - 5.0 g/dL) 3.8 Amylase (25 - 115 U/L) 56 Lipase (73 - 393 U/L) 279 Hematology WBC (4.5 - 11.5 K/uL) 7.2 RBC (4.50 - 5.90 M/uL) 5.39 Hgb (13.5 - 17.5 gm/dL) 16.0 Hct (41.0 - 53.0 %) 46.2 MCV (80 - 100 fL) 86 MCH (26 - 34 pg) 30 RDW (11.6 - 14.8 %) 13.4 Neut % (Auto) (50 - 75 %) 63.9 Lymph % (Auto) (25 - 40 %) 26.4 [place] % (Auto) (3 - 14 %) 7.7 Eos % (Auto) (0 - 4 %) 1.8 Baso % (Auto) (0 - 2 %) 0.2 Plt Count, EDTA (150 - 400 K/uL) 226 PUBS MCHC (31 - 37 g/dL) 35 Urines Urine Color YELLOW Urine Appearance CLEAR Urine pH (5.0 - 8.0) 6.0 Ur Specific [place] (1.010 - 1.030) 1.025 Urine Protein (NEGATIVE) NEGATIVE Urine Ketones (NEGATIVE) NEGATIVE Urine Blood (NEGATIVE) NEGATIVE Urine Nitrite (NEGATIVE) NEGATIVE Urine Bilirubin (NEGATIVE) NEGATIVE Urine Urobilinogen (0.2 - 1.0 EU/dL) 0.2 Ur Leukocyte Esterase (NEGATIVE) NEGATIVE Urine RBC (0 - 1 rbc/hpf) RARE Urine WBC (0 - 1 wbc/hpf) 0-1 Ur Epithelial Cells (0 - 5 EPI/hpf) 0-1 Urine Bacteria (NONE SEEN) TRACE (<1+) Urine Glucose (NEGATIVE) NEGATIVE Urine Comment CULT NOT INDICATED Microbiology Date/Time Procedure - Status Source Growth 12/13 1050 MRSA Screen - RECD NASAL Imaging Gall bladder ultrasound 1. Gallbladder hydrops with cholelithiasis and mild gallbladder wall thickening. Findings suggestive of acute cholecystitis CT abdomen and pelvis 1. Markedly distended gallbladder. Recommend ultrasound 2. Mildly enlarged prostate Assessment and Plan Problem List 1. Acute cholecystitis Plan Consulting general surgery. Pending cholecystectomy today. Monitor fluids. Continue with the home medication. Surgery will perform a lap cholecystectomy. We'll monitor healing. Patient will be nothing by mouth overnight. Follow-up with labs in the morning. Appropriate pain control. 2. Hypertension Plan Monitor blood pressure. Will continue with the single agent hydrochlorothiazide. 3. Hyperpituitarism Plan Home medication includes a bromocriptine 50 mg at bedtime. This will continue. Otherwise stable. 4. GERD (gastroesophageal reflux disease) Status Chronic Plan GI prophylaxis. Substitute with pantoprazole 40 mg daily. Current status: Fair, unstable Anticipated discharge date: Anticipated discharge in 1-2 days Anticipated discharge placement: Home Patient care time: Time spent in chart review, patient interview, physical exam, CPOE, and care documentation: 70 minutes Visit to patient today: 1 Complexity of care: Moderate Initial patient evaluation: Emergency department GI prophylaxis: Protonix 40 mg IV daily DVT prophylaxis: SCD E&M Codes Rounding: Obsv-Comp/High/[id number]
--- NOTE | 2016-12-13 17:06 | Operative Report ---
Operative Report Date of Surgery: 12/13/16 Preoperate Diagnosis: symptomatic cholelithiasis. Acute cholecystitis. Postoperative Diagnosis: symptomatic cholelithiasis. Acute cholecystitis. Surgeon: Vikram Lowry MD Human Services Professional Surgeon: none Procedure Performed: Laparoscopic lysis of adhesions. Laparoscopic cholecystectomy and fluoroscopic intraoperative cholangiogram. Anesthesia: Gen. endotracheal Indications: A 56-year-old male with acute onset epigastric right upper quadrant abdominal pain. CT showed distended gallbladder to 18 cm. Ultrasound showed multiple mobile stones each just a little over 1 cm in size. Gallbladder wall thickness 3 mm. FINDINGS: Adhesions between the diaphragm and the right lobe of the liver. Distended thickwalled gallbladder. The neck of the gallbladder encased in fat. Normal intraoperative cholangiogram. Free flow of contrast material into the duodenum. No evidence of obstruction. No evidence of retained stone. Visualization of the hepatic radicals, hepatic duct and common bile duct. Surgical Technique: Patient brought to the operating room and placed in the dorsal supine position. Patient was administered general endotracheal anesthesia by the anesthesiology department. After proper anesthesia taken effect patient's abdomen was prepped using Betadine and draped in a sterile fashion. An infraumbilical incision made in the skin and down through the subcutaneous tissue. A Veress needle was inserted through this site and into the abdominal cavity. After ascertaining the appropriate position with suction irrigation a pneumoperitoneum was obtained using CO2 insufflation to approximate 14 15 mmHg pressure. The varices needle was removed and replaced with 10 mm trocar. The trocar removed leaving the sleeve behind. A laparoscopic video camera was introduced into the abdominal cavity. Under direct visualization a separate 10 mm trocar was placed in subxiphoid region. Two 5 mm trochars were placed in the anterior lateral abdominal wall approximately 3-4 fingerbreadths below the costal margin. Each trocar entered the abdominal cavity under direct visualization. Trochars removed leaving the sleeve behind through which laparoscopic instrumentation was introduced into the abdominal cavity. The aforementioned findings noted. Adhesions between the right lobe of the liver and the diaphragm were taken down using electrocautery dissection in a tedious fashion. We were thus able to loosen the right lobe of the liver from the diaphragm to facilitate retraction. The gallbladder grasped retracted cephalad. Using a combination of blunt dissection and electrocautery were able to circumferentially isolate the cystic duct. A clip was placed at the junction of the neck of the cystic duct and the gallbladder. Small incision made in the anterior surface of the cystic duct. Percutaneous cholangiocatheter was threaded through the anterior abdominal wall into the cystic duct and clipped into position. The fluoroscopic intraoperative cholangiogram was performed.. The aforementioned findings noted, the cholangiogram catheter was retrieved from the cystic duct and the abdominal cavity. The distal cystic duct was clipped in continuity divided. The cystic artery identified clipped continuity divided. The gallbladder was taken down from its bed in a retrograde fashion using electrocautery dissection. When the gallbladder was completely free from its bed, the gallbladder was placed in a sterile specimen container bag and retrieved from the abdominal cavity. The gallbladder specimen was sent to pathology. The gallbladder bed was inspected for hemostasis. The assuring ourselves of proper hemostasis, the right upper quadrant was irrigated copiously with normal saline antibiotic solution and irrigant suctioned out. Approximately 30 cc 0.5% Marcaine with epinephrine were sprayed over the right lobe of of the liver for postop analgesia. The pneumoperitoneum released. All trochars removed and the abdominal cavity. All trocar sites were approximated using 4-0 subcuticular Polysorb interrupted suture. Steri-Strips placed over the wound. Sterile occlusive dressing placed over each site. Patient tolerated procedure well. Patient was extubated and transferred recovery room in stable condition. There were no intraoperative anesthetic outpatient. CONDITION: Stable to postoperative anesthesia recovery room COMPLICATIONS: None ESTIMATED BLOOD LOSS: Minimal FLUIDS: 500 cc lactated Ringer's SPECIMEN: Gallbladder and contents
--- NOTE | 2016-12-13 18:22 | DIAGNOSTIC IMAGING REPORT ---
PROCEDURE: XR INTRAOPERATIVE LAP VIKA INDICATION: LAP VIKA TECHNIQUE: Intraoperative fluoroscopy provided for Dr. Lowry performing an intraoperative cholangiogram following cholecystectomy. Total fluoroscopy time 12 seconds. Cumulative dose 6.5 mGy. COMPARISON: Abdominal ultrasound 12/13/2016. FINDINGS: Single AP intraoperative fluoroscopic spot image of the right upper quadrant of the abdomen demonstrate cannulation of the cystic duct stump and opacification of the intrahepatic and extrahepatic biliary tree. There are no filling defects. There is normal passage of contrast into the duodenum. IMPRESSION: 1. Negative intraoperative cholangiogram.
--- NOTE | 2016-12-13 23:12 | ED MAR SUMMARY ---
..... Medication Administration Record [facility] [address] [place] [address] Patient: ERASMO BENNETT Visit ID: [id number] 56y, M Weight: 124.7 kg Height/Length: 74 in BMI: 35.3 ALLERGIES: Wellbutrin Given 05:49 12/13/2016 Delmi Lopez, Medication Administered: DEMEROL [IVP] (MEPERIDINE HCL), Dose: 25 mg IVP over 1 minute(s), Site: #1 left AC. Medication Ordered: Demerol IV 25 mg (NOW). Given 05:49 12/13/2016 Delmi Lopez, Medication Administered: ZOFRAN [IVP] (ONDANSETRON HCL), Dose: 4 mg IVP over 1 minute(s), Site: #1 left AC. Medication Ordered: Zofran IV 4 mg (NOW). Given 05:50 12/13/2016 Delmi Lopez, Medication Administered: GI COCKTAIL WHITE [PO] (SIMETHICONE), Dose: 50 mL Oral Suspension PO. Medication Ordered: GI Cocktail WHITE PO 50 mL (NOW). Given 06:12/13/2016 Delmi Lopez, Medication Administered: DILAUDID [IVP] (HYDROMORPHONE HCL PF), Dose: 1 mg IVP over 1 minute(s), Site: #1 left AC. Medication Ordered: Dilaudid IV 1 mg (NOW). Given 07:53 12/13/2016 India Chang RSandy Medication Administered: DILAUDID [IVP] (HYDROMORPHONE HCL PF), Dose: 1 mg IVP over 2 minute(s), Site: #1 left AC. Medication Ordered: Dilaudid IV 1 mg (NOW). Given 07:53 12/13/2016 India Chang R.N. Medication Administered: ZOFRAN [IVP] (ONDANSETRON HCL), Dose: 4 mg IVP over 1 minute(s), Site: #1 left AC. Medication Ordered: Zofran IV 4 mg (NOW).
--- NOTE | 2016-12-13 23:12 | ED MAR SUMMARY ---
..... Medication Administration Record [facility] [address] [place] [address] Patient: ERASMO BENNETT Visit ID: [id number] 56y, M Weight: 124.7 kg Height/Length: 74 in BMI: 35.3 ALLERGIES: Wellbutrin Given 05:49 12/13/2016 Delmi Lopez, Medication Administered: DEMEROL [IVP] (MEPERIDINE HCL), Dose: 25 mg IVP over 1 minute(s), Site: #1 left AC. Medication Ordered: Demerol IV 25 mg (NOW). Given 05:49 12/13/2016 Delmi Lopez, Medication Administered: ZOFRAN [IVP] (ONDANSETRON HCL), Dose: 4 mg IVP over 1 minute(s), Site: #1 left AC. Medication Ordered: Zofran IV 4 mg (NOW). Given 05:50 12/13/2016 Delmi Lopez, Medication Administered: GI COCKTAIL WHITE [PO] (SIMETHICONE), Dose: 50 mL Oral Suspension PO. Medication Ordered: GI Cocktail WHITE PO 50 mL (NOW). Given 06:12/13/2016 Delmi Lopez, Medication Administered: DILAUDID [IVP] (HYDROMORPHONE HCL PF), Dose: 1 mg IVP over 1 minute(s), Site: #1 left AC. Medication Ordered: Dilaudid IV 1 mg (NOW). Given 07:53 12/13/2016 India Chang RSandy Medication Administered: DILAUDID [IVP] (HYDROMORPHONE HCL PF), Dose: 1 mg IVP over 2 minute(s), Site: #1 left AC. Medication Ordered: Dilaudid IV 1 mg (NOW). Given 07:53 12/13/2016 India Chang R.N. Medication Administered: ZOFRAN [IVP] (ONDANSETRON HCL), Dose: 4 mg IVP over 1 minute(s), Site: #1 left AC. Medication Ordered: Zofran IV 4 mg (NOW).
--- NOTE | 2016-12-13 23:12 | ED DISCHARGE INSTRUCTIONS ---
Patient: ERASMO BENNETT General Instructions [facility] VisitID: [id number] [place] [address] 56y, M Registration Date/Time: 12/13/2016 Acute cholecystitis with cholelithiasis. No obstruction or choledocholithiasis. ADDITIONAL INFORMATION Cholecystitis [Presumed] Your doctor suspects that your abdominal pain is due to an inflammation and possible infection in the gallbladder. The gallbladder is a small sac under the liver, which stores and releases bile. Bile is a fluid that aids in the digestion of fat. A gallstone may form in this sac and block the passage of bile fluid. This can lead to mild to severe abdominal pain, fever, nausea and vomiting. To be more certain of the diagnosis, you may need to have an ultrasound, CT-scan or other special test. Home Care: Rest in bed and follow a clear liquid diet until the pain, nausea and vomiting go away. Antibiotics and other medicine may be prescribed. Take this exactly as directed. You may use ibuprofen (Motrin, Advil) or naproxen (Naprosyn, Aleve) to control pain, unless another medicine was prescribed. [NOTE: If you have chronic kidney disease or ever had a stomach ulcer or GI bleeding, talk with your doctor before using these medicines.] Fat in your diet makes the gallbladder contract and may cause increased pain. Therefore, avoid fat in your diet over the next two days and follow a low-fat diet thereafter. If you are overweight, a low fat diet will help you lose weight. Follow Up an infection in the gallbladder is a serious problem and must be watched carefully. Keep any appointments made for you to have further testing. See your doctor for another exam in the next 1-2 days, or as directed by our staff. Once cholecystitis has occurred, removal of the gallbladder is usually required to prevent a recurrence. You can discuss this at your follow-up visit. Return Promptly or contact your doctor if any of the following occur: Repeated vomiting Swelling of the abdomen Pain lasts over 6 hours Fever of 100.4F(38C) or higher, or as directed by your healthcare provider Weakness, dizziness or fainting Dark urine or light colored stools Yellow color of the skin or eyes Chest, arm, back, neck or jaw pain You have been given the following additional information: Cholecystitis, Presumed (Electronically signed by Alex Michael MD 12/13/2016 23:11)
--- NOTE | 2016-12-13 23:12 | ED MED RECONCILIATION SUMMARY ---
Patient: ERASMO BENNETT Medication Reconciliation Report [facility] VisitID: [id number] [address] [place] [address] 56y, M Registration Date/Time: 12/13/2016 Weight: 124.7 kg Height/Length: 74 in. BMI: 35.3 ALLERGIES: Wellbutrin The patient's Home Medications are listed below: THE FOLLOWING MEDICATIONS NEED TO BE RECONCILED: Bromocriptine Mesylate Oral Hydrochlorothiazide Oral Omeprazole Oral The source(s) of the original Home Medication information: patient The following Medications were given to the patient in the Emergency Department: Demerol [IVP] IVP 25 mg, administered: 12/13/2016 5:49:00 AM Zofran [IVP] IVP 4 mg, administered: 12/13/2016 5:49:00 AM GI COCKTAIL WHITE [PO] PO 50 mL, administered: 12/13/2016 5:50:00 AM Dilaudid [IVP] IVP 1 mg, administered: 12/13/2016 6:05:00 AM Dilaudid [IVP] IVP 1 mg, administered: 12/13/2016 7:53:00 AM Zofran [IVP] IVP 4 mg, administered: 12/13/2016 7:53:00 AM The following Medications were prescribed to the patient: None.
--- NOTE | 2016-12-13 23:12 | ED MED RECONCILIATION SUMMARY ---
Patient: ERASMO BENNETT Medication Reconciliation Report [facility] VisitID: [id number] [address] [place] [address] 56y, M Registration Date/Time: 12/13/2016 Weight: 124.7 kg Height/Length: 74 in. BMI: 35.3 ALLERGIES: Wellbutrin The patient's Home Medications are listed below: THE FOLLOWING MEDICATIONS NEED TO BE RECONCILED: Bromocriptine Mesylate Oral Hydrochlorothiazide Oral Omeprazole Oral The source(s) of the original Home Medication information: patient The following Medications were given to the patient in the Emergency Department: Demerol [IVP] IVP 25 mg, administered: 12/13/2016 5:49:00 AM Zofran [IVP] IVP 4 mg, administered: 12/13/2016 5:49:00 AM GI COCKTAIL WHITE [PO] PO 50 mL, administered: 12/13/2016 5:50:00 AM Dilaudid [IVP] IVP 1 mg, administered: 12/13/2016 6:05:00 AM Dilaudid [IVP] IVP 1 mg, administered: 12/13/2016 7:53:00 AM Zofran [IVP] IVP 4 mg, administered: 12/13/2016 7:53:00 AM The following Medications were prescribed to the patient: None.
[2016-12-14 02:57] VITALS: BP 112/69
[2016-12-14 06:46] VITALS: BP 117/56
--- NOTE | 2016-12-14 07:09 | Progress Note ---
Subjective General Note Date: 12/14/2016 Admission Date: 12/13 2016 Hospital Day: 2 PCP: Prosper malone Status: Observation acute care Room: 210 56-year-old white male with a significant past medical history of low androgen, hyper pituitary, hypertension, GERD who presented to [facility] ER with acute abdominal pain. Patient began noting pain in the right upper quadrant to epigastric at 4 AM this morning. Patient was taken emergency department. There he was evaluated and determined that his gallbladder was diseased. Patient showed stones in the gallbladder and a 3 mm wall thickening. Patient was consulted by general surgery. Admission through hospitalist soren Roque M.D. for further evaluation and treatment. Subjective Status post cholecystectomy. Patient reports any stone better. He is no longer having the pain that he was having on admission. Patient reports of passing gas. No distention. Reporting of incisional pain. Patient is eating. Patient is ready to go home Patient requests Patient is anxious to go home Constitutional Denies: Chills, Sweats. ENT Denies: Nose Pain. Respiratory Denies: Wheezing. Cardiovascular Denies: Palpitations. Gastrointestinal Abdominal Pain. Denies: Diarrhea, Constipation. Physical Exam Vital Signs / I&Os Vital Signs Date Time Temp Pulse Resp B/P Pulse O2 O2 Flow FiO2 Ox Delivery Rate / 0646 98.1 79 19 117/56 96 Nasal 2.0 Cannula 05/07 0257 98.4 82 18 112/69 96 Nasal 2.0 Cannula 05/06 2222 99.7 90 18 127/75 96 Nasal 2.0 Cannula 05/06 2128 2.0 05/06 2005 92 18 125/76 93 Nasal 2.0 Cannula 05/06 1905 98.2 85 18 139/90 96 Nasal 2.0 Cannula 05/06 1820 97.7 68 18 112/89 100 Nasal 2.0 Cannula 05/06 1805 97.7 69 18 135/81 97 Nasal 2.0 Cannula 05/06 1750 97.5 80 18 131/76 96 Nasal 2.0 Cannula 05/06 1735 97.9 71 19 123/81 97 Nasal 2.0 Cannula 05/06 1719 99.1 58 12 136/71 96 Nasal 2.0 Cannula 05/06 1713 64 16 138/65 95 05/06 1705 75 15 145/69 96 05/06 1656 72 15 130/83 96 05/06 1651 98.8 81 21 145/74 98 Nasal 3.0 Cannula 12/13 1432 98.4 69 21 110/57 96 Room Air 12/13 1056 97.5 75 21 102/60 95 I&O 12/13 0800 12/13 1600 12/14 0000 Intake Total 500 1077 Output Total 1985 Balance 500 -908 General Appearance Oriented X3 HEENT PERRLA Lungs Clear to auscultation Cardiovascular Regular rate and rhythm, Normal S1 and S2 Abdomen No guarding, No rebound, incisional sites; clean dry and intact Skin No Rashes LAB Results Microbiology Date/Time Procedure - Status Source Growth 12/13 1050 MRSA Screen - RECD NASAL Assessment and Plan Problem List 1. Hypertension Plan Will maintain blood pressure. We'll continue with the same hydrochlorothiazide on discharge 2. Hyperpituitarism Plan History of hyperpituitarism. Patient on bromocriptine for mass. Patient is on testosterone replacement 3. GERD (gastroesophageal reflux disease) Status Chronic Plan Continue with omeprazole 20 mg daily on discharge. 4. Acute cholecystitis Plan Patient is following up with Dr. Lowry. Patient was given Wound care instructions given. Patient discharged home on Hycet elixir 1 tablespoon Q6 hours when necessary pain. We will follow up with surgery in the next week. Resume home medications. Current status: Good, stable Anticipated discharge date: Anticipated discharge 12/14/2016 Anticipated discharge placement: Home Patient care time: Time spent in chart review, patient interview, physical exam, CPOE, and care documentation: 25 minutes Visit to patient today:1 Complexity of care: low Initial patient evaluation: Emergency department DVT prophylaxis: mechanical E&M Codes Rounding: Obsv-Comp/Moderate/[id number] Discharge: Observation - All/[id number]
[2016-12-14] MEDS ORDERED: HYCET1 ML PO (10:06)
--- NOTE | 2016-12-14 10:07 | Provider's Discharge Care Plan ---
Problem, Goal, Plan Problem List 1. S/P laparoscopic cholecystectomy Goals: Improve disease control, Therapeutic intervention Instructions: Follow up as directed, Take meds as directed
--- NOTE | 2016-12-14 10:07 | Provider's Discharge Care Plan ---
Problem, Goal, Plan Problem List 1. S/P laparoscopic cholecystectomy Goals: Improve disease control, Therapeutic intervention Instructions: Follow up as directed, Take meds as directed
--- NOTE | 2016-12-14 10:36 | Progress Note ---
Subjective General 56-year-old male postop day 1 status post laparoscopic cholecystectomy. Feels great.. Tolerating clear liquids by mouth. Passing flatus. Physical Exam Vital Signs / I&Os Vital Signs Date Time Temp Pulse Resp B/P Pulse O2 O2 Flow FiO2 Ox Delivery Rate 12/14 0646 98.1 79 19 117/56 96 Nasal 2.0 Cannula I&O 12/13 0800 12/13 1600 12/14 0000 Intake Total 500 1077 Output Total 1985 Balance 500 -908 General Appearance Alert, Oriented X3, Cooperative, No acute distress Lungs Clear to auscultation Cardiovascular Regular rate and rhythm Abdomen all trocar sites are dry. Positive bowel sounds Neurological No lateralizing signs Assessment and Plan Problem List 1. S/P laparoscopic cholecystectomy Plan Stable postop. We'll discharge home. Wound care instructions given. We'll send home with Hycet elixir 1 tablespoon Q6 hours when necessary pain. Followup later this week. Resume home medications.
== END 2016-12-14 10:25 | disposition home or self-care (01) ==
LOC: ED SRH 05:13 → TRANS SRH 09:10 → CC SRH 10:37 → ACUTE2 SRH 23:47
PROVIDERS: Specialist; ADMIT Emergency Medicine
PROC: 0FN14ZZ Release Right Lobe Liver, Percutaneous Endoscopic Approach (ICD-10-PCS; principal; 2016-12-13 15:30)
PROC: 0FT44ZZ Resection of Gallbladder, Percutaneous Endoscopic Approach (ICD-10-PCS; principal; 2016-12-13 15:30)
PROC: BF101ZZ Fluoroscopy of Bile Ducts using Low Osmolar Contrast (ICD-10-PCS; principal; 2016-12-13 15:30)
DX: K80.00 Calculus of gallbladder with acute cholecystitis without obstruction (principal); K66.0 Peritoneal adhesions (postprocedural) (postinfection); K21.9 Gastro-esophageal reflux disease without esophagitis; I10 Essential (primary) hypertension; E22.9 Hyperfunction of pituitary gland, unspecified
CPT/HCPCS: 29229; 29230; 29259; 29264; 50002; 60001; 70002; 80102; 80248; 80852; 82669; 82794; 82807; 83339; 83348; 83587; 83937; 83982; 84038; 90004; 90074; 90100; 92132; 92235; 92530; 92690; 92720; 95059